=== PATIENT | female | born 2000 | race Caucasian/White ===

== ENCOUNTER 2022-10-06 18:21 | Emergency (ER) | payer OTHER ==
--- OUTSIDE RECORDS SUMMARY | 2022-10-06 18:25 | XMS REPORT | Continuity of Care Document ---
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 Completed University of 00:00:00 [facility] Pneumococcal 7 2002-04-26 Completed University of Conjugate, PCV7 00:00:00 [place] [facility] (Prevnar7) [facility] DTAP 2002-04-26 Completed University of 00:00:00 [facility] IPV 2002-04-26 Completed University of 00:00:00 [facility] Pneumococcal 7 2002-04-26 Completed University of Conjugate, PCV7 00:00:00 [place] [facility] (Prevnar7) [facility] DTAP 2002-04-26 Completed [facility] of 00:00:00 [facility] IPV 2002-04-26 Completed [facility] of 00:00:00 [facility] Pneumococcal 7 2002-04-26 Completed University of Conjugate, PCV7 00:00:00 [place] [facility] (Prevnar7) [facility] DTAP 2002-04-26 Completed University of 00:00:00 [facility] IPV 2002-04-26 Completed University of 00:00:00 [facility] Pneumococcal 7 2002-04-26 Completed University of Conjugate, PCV7 00:00:00 [place] [facility] (Prevnar7) [facility] DTAP 2002-04-26 Completed [facility] of 00:00:00 [facility] Pneumo (Prevnar 7) 2002-04-26 [facility]00 [facility]pol Injection 2002-04-26 [facility]pleted [facility] Injectable 00:00:00 Hib, Haemophilus 2002-04-26 [facility]pleted [facility] influenzae type b 00:00:00 vaccine, conjugate unspecified formulation DTaP, unspecified 2002-04-26 Completed [facility] formulation 00:00:00 DTAP 2002-01-30 Completed [facility] of 00:00:00 [facility] IPV 2002-01-30 Completed [facility] of 00:00:00 [facility] Pneumococcal 7 2002-01-30 Completed University of Conjugate, PCV7 00:00:00 [place] [facility] (Prevnar7) [facility] DTAP 2002-01-30 Completed [facility] of 00:00:00 [facility] IPV 2002-01-30 Completed [facility] of 00:00:00 [facility] Pneumococcal 7 2002-01-30 Completed University of Conjugate, PCV7 00:00:00 [place] [facility] (Prevnar7) [facility] DTAP 2002-01-30 Completed [facility] of 00:00:00 [facility] IPV 2002-01-30 Completed [facility] of 00:00:00 [facility] Pneumococcal 7 2002-01-30 Completed University of Conjugate, PCV7 00:00:00 [place] [facility] (Prevnar7) [facility] DTAP 2002-01-30 Completed [facility] of 00:00:00 [facility] IPV 2002-01-30 Completed [facility] of 00:00:00 [facility] Pneumococcal 7 2002-01-30 Completed [facility] Conjugate, PCV7 00:00:00 [place] [facility] (Prevnar7) [facility] DTAP 2002-01-30 Completed [facility] of 00:00:00 [facility] IPV 2002-01-30 Completed [facility] of 00:00:00 [facility] Pneumococcal 7 2002-01-30 Completed [facility] Conjugate, PCV7 00:00:00 [place] [facility] (Prevnar7) [facility] DTAP 2002-01-30 Completed [facility] of 00:00:00 [facility] DTAP 2002-01-30 Completed [facility] of 00:00:00 [facility] IPV 2002-01-30 Completed [facility] of 00:00:00 [facility] Pneumococcal 7 2002-01-30 Completed [facility] of Conjugate, PCV7 00:00:00 [place] [facility] (Prevnar7) [facility] IPV 2002-01-30 Completed [facility] 00:00:00 [facility] DTAP 2002-01-30 Completed [facility] of 00:00:00 [facility] IPV 2002-01-30 Completed [facility] 00:00:00 [facility] Pneumococcal 7 2002-01-30 Completed University of Conjugate, PCV7 00:00:00 [place] [facility] (Prevnar7) [facility] DTAP 2002-01-30 Completed [facility] 00:00:00 [facility] Pneumococcal 7 2002-01-30 Completed [facility] of Conjugate, PCV7 00:00:00 [place] [facility] (Prevnar7) [facility] IPV 2002-01-30 Completed [facility] 00:00:00 [facility] Pneumococcal 7 2002-01-30 Completed [facility] of Conjugate, PCV7 00:00:00 [place] [facility] (Prevnar7) [facility] DTAP 2002-01-30 Completed [facility] of 00:00:00 [facility] IPV 2002-01-30 Completed [facility] 00:00:00 [facility] Pneumococcal 7 2002-01-30 Completed [facility] Conjugate, PCV7 00:00:00 [place] [facility] (Prevnar7) [facility] DTAP 2002-01-30 Completed [facility] of 00:00:00 [facility] IPV 2002-01-30 Completed [facility] of 00:00:00 [facility] Pneumococcal 7 2002-01-30 Completed [facility] Conjugate, PCV7 00:00:00 [place] [facility] (Prevnar7) [facility] DTAP 2002-01-30 Completed [facility] of 00:00:00 [facility] IPV 2002-01-30 Completed [facility] of 00:00:00 [facility] Pneumococcal 7 2002-01-30 Completed [facility] of Conjugate, PCV7 00:00:00 [place] [facility] (Prevnar7) [facility] DTAP 2002-01-30 Completed [facility] of 00:00:00 [facility] IPV 2002-01-30 Completed [facility] of 00:00:00 [facility] Pneumococcal 7 2002-01-30 Completed [facility] Conjugate, PCV7 00:00:00 [place] [facility] (Prevnar7) [facility] Pneumo (Prevnar 7) 2002-01-30 [facility]pleted [facility] 00:[facility]:00 Ipol Injection 2002-01-30 Completed [facility] Injectable 00:00:00 Hib, Haemophilus 2002-01-30 Completed [facility] influenzae type b 00:00:00 vaccine, conjugate unspecified formulation DTaP, unspecified 2002-01-30 [facility]pleted [facility] formulation 00:00:00 Hepatitis B, 2002-01-15 Completed [facility] 00:00:00 dosage Hepatitis B, 2001 Completed [facility] 00:00:00 dosage Hepatitis B, 2001 Completed [facility] 00:00:00 dosage Vital Signs Vital Name Observation Time Observation Value Comments Source Systolic blood 2020-07-23 118 mm[Hg] University of pressure 19:00:00 [facility] Diastolic blood 2020-07-23 76 mm[Hg] University o f pressure 19:00:00 [facility] Heart rate 2020-07-23 94 /min University of 19:00:00 [facility] Body temperature 2020-07-23 36.72 [place] [facility] 19:00:00 [facility] Respiratory rate 2020-07-23 16 /min University of 19:00:00 [facility] Body weight 2020-07-23 82.555 kg University of 19:00:00 [facility] Systolic blood 2020-01-21 110 mm[Hg] University of pressure 21:10:00 [facility] Diastolic blood 2020-01-21 70 mm[Hg] University o f pressure 21:10:00 [facility] Heart rate 2020-01-21 75 /min University of 21:10:00 [facility] Respiratory rate 2020-01-21 16 /min University of 21:10:00 [facility] Body weight 2020-01-21 75.07 kg University of 21:10:00 [facility] Oxygen saturation 2020-01-21 98 /min [facility] in Arterial blood 21:10:00 [facility] Pulse oximetry [place] Systolic blood 2019-09-27 113 mm[Hg] University of pressure 21:06:00 [facility] Diastolic blood 2019-09-27 73 mm[Hg] University o f pressure 21:06:00 [facility] Heart rate 2019-09-27 79 /min University of 21:06:00 [facility] Body temperature 2019-09-27 36.17 [place] [facility] 21:06:00 [facility] Respiratory rate 2019-09-27 17 /min [facility] 21:06:00 [facility] Body height 2019-09-27 165.1 cm [facility] :06:00 [facility] Body weight 2019-09-27 72.576 kg [facility] 21:06:00 [facility] BMI 2019-09-27 26.63 kg/m2 [facility] 21:06:00 [facility] Oxygen saturation 2019-09-27 96 /min [facility] Arterial blood 21:06:00 [facility] by Pulse oximetry Branch BP Systolic 2018-10-11 118 mm[Hg] Location: LUE; [facility] 10:59:00 Position: Sitting BP Diastolic 2018-10-11 76 mm[Hg] Location: LUE; [facility] 10:59:00 Position: Sitting Height 2018-10-11 64 [in_us] [facility] 10:59:00 Weight 2018-10-11 144 [lb_av] [facility] 10:59:00 Body Mass Index 2018-10-11 24.72 kg/m2 [facility] Calculated 10:59:00 Temperature 2018-10-11 97.9 [degF] Method: Oral [facility] 10:59:00 Heart Rate 2018-10-11 91 /min Location: L [facility] 10:59:00 Brachial Artery; BP Systolic 2018-09-25 100 mm[Hg] Location: DELLAE; [facility] 10:51:00 Position: Sitting BP Diastolic 2018-09-25 68 mm[Hg] Location: MARY; [facility] 10:51:00 Position: Sitting Height 2018-09-25 64 [in_us] [facility] 10:51:00 Weight 2018-09-25 145 [lb_av] [facility] 10:51:00 Body Mass Index 2018-09-25 24.89 kg/m2 [facility] Calculated 10:51:00 Heart Rate 2018-09-25 101 /min [facility] 10:51:00 BP Systolic 2018-09-13 109 mm[Hg] Location: LUE; [facility] 13:10:00 Position: Sitting BP Diastolic 2018-09-13 67 mm[Hg] Location: DELLAE; [facility] 13:10:00 Position: Sitting Height 2018-09-13 64 [in_us] [facility] 13:10:00 Weight 2018-09-13 146 [lb_av] [facility] 13:10:00 Body Mass Index 2018-09-13 25.06 kg/m2 [facility] Calculated 13:10:00 Temperature 2018-09-13 98.2 [degF] Method: Oral [facility] 13:10:00 Heart Rate 2018-09-13 83 /min Location: L [facility] 13:10:00 Brachial Artery; Heart Rate 2018-07-18 [facility] 16:51:00 Temperature Oral 2018-07-18 98.2 F [facility] ([facility]) 16:51:00 Systolic (mm Hg) 2018-07-18 [facility] 16:51:00 Diastolic (mm Hg) 2018-07-18 [facility] 16:51:00 Respitory Rate 2018-07-18 [facility] 16:51:00 Height 2018-07-18 162.56 cm [facility] 15:01:00 Weight 2018-07-18 [facility] 15:01:00 BMI Calculated 2018-07-18 [facility] 15:01:00 Temperature Oral 2018-07-18 98.6 F [facility] (F) 15:01:00 Heart Rate 2018-07-18 [facility] 15:01:00 Systolic (mm Hg) 2018-07-18 [facility] 15:01:00 Diastolic (mm Hg) 2018-07-18 [facility] 15:01:00 Respitory Rate 2018-07-18 [facility] 15:01:00 Procedures Procedure Date / Time Performing Clinician Source Performed INSURANCE CORRESPONDENCE 2022-02-25 06:01:00 Doctor Unassigned, [facility] ASSIGNMENT OF BENEFITS 2020-07-23 18:50:10 Doctor Unassigned, [facility] POCT GRP A STREP 2020-01-21 21:29:00 [facility] (MOLECULAR) Medical Branch COVID-19 (PCR MOLECULAR 2019-09-27 20:59:[address] [facility] TESTING) Medical Branch VACCINATION OF A MINOR 2019-09-27 14:33:24 Doctor Unassigned, [facility] REFERRAL- 2019-04-26 06:01:00 Doctor Unassigned, [facility] REQUEST/RESPONSE [facility] Encounters Start End Encounter Admission Attending Care Care Encounter Source Date/Time Date/Time Type Type Clinicians Facility Department ID 2022-02-25 2022-02-25 Orders Doctor SEAN [id number] Univers 00:00:00 00:00:00 Only Unassigned, DERRICK [id number] [facility] [id number] Rc as [phone] [place] [address] Branch 2020-08-03 2020-08-03 Telephone de [facility] [id number] Univers 00:00:00 00:00:00 Jacobo Nelson [id number] ity of [facility] 4[facility]2.7.2.686 [facility] [phone] [address] 2020-07-23 2020-07-23 Office [facility] [id number] Univers 13:50:33 14:10:33 Visit Jacobo Nelson [id number] ity of [facility] 4.2.7.2.686 [facility] [id number] [address] 2020-07-23 2020-07-23 Outpatient R [facility] [id number] Univers 14:00:00 14:00:00 sue NELSON of [facility] 2020-07-23 2020-07-23 Orders Doctor ESTRADA [id number] Univers 00:00:00 00:00:00 Only Unassigned, DERRICK [id number] [facility] 4.2.7.2.686 Rc as [id number] [place] [address] Branch 2020-01-23 2020-01-23 Telephone de [facility] [id number] Univers 00:00:00 00:00:00 Jacobo Nelson [id number] ity of [facility] 4.2.7.2.686 [facility] [id number] [address] 2020-01-21 2020-01-21 Office [facility] [id number] Univers 16:00:01 16:20:01 Visit Jacobo Nelson [id number] ity of [facility] 4.2.7.2.686 [facility] [phone] [facility] [address] 2020-01-21 2020-01-21 Outpatient R [facility] [id number] Univers 16:00:00 16:00:00 sue NELSON [facility] 2019-10-10 2019-10-10 AppointSPARKLE Chan [id number] [place] 10:00:00 10:00:00 t; Divya PINEDA Ph minna Tuttle M.D. 2019-09-27 2019-09-27 Urgent Pob1, Acute Care Clinic [facility] [id number]. [id number] Univers 15:51:00 16:32:39 Care Jeannine Bowling [id number]. 10 ity of [place] 4.2.7.2.686 Rc as Professio [phone] [address] Office [address] [facility] 2019-09-27 2019-09-27 Outpatient R DASH [facility] [id number] Univers 09:40:00 09:40:[address] [facility] [place] [place] 2019-09-27 2019-09-27 Orders Doctor SEAN [id number] Univers 00:00:00 00:00:00 Only Unassigned, DERRICK [id number] [facility] 4.2.7.2.686 Rc as [phone] [address] 2019-09-27 2019-09-27 Telephone Dash [facility] [place] [id number] Univers 00:00:00 00:00:00 Jeannine Centeno [id number] ity of [facility] 4[facility]2.7.2.686 [facility] [phone] [facility] [address] 2019-09-26 2019-09-26 Telephone Etelvina [facility] [id number] Univers 00:00:00 00:00:00 , Deysi Centeno [id number] it y of [facility] 4.2.7.2.686 [facility] [id number] [facility] 225 Branch 2019-04-26 2019-04-26 Orders Doctor SEAN [id number] Univers 00:00:00 00:00:00 Only Unassigned, DERRICK [id number] ity of [facility] 4.2.7.2.686 Rc as [id number] [facility] 009 Branch 2018-10-11 2018-10-11 Appointpadmini TREVINO [facility] Obstetrics [id number] [place] 11:45:00 11:45:00 t; Divya PINEDA and Ph getachew TREVINO, Gynecology Mirtha Nava M.D. [facility] 2018-09-25 2018-09-25 [facility] [id number] [place] 10:15:00 10:15:00 t; Divya PINEDA [facility]ED[facility] M.[facility]. 2018-09-13 2018-09-13 Nuris TREVINO [facility] [id number] [place] 13:00:00 13:00:00 t; Divya PINEDA [facility] Ph minna Montalvo M.D. 2018-07-18 2018-07-18 Emergency [facility] [id number] [facility] 14:56:00 16:56:00 [facility] 00 l [facility] 2018-07-18 2018-07-18 Outpatient [place], [facility] [address] [id number] 09:56:00 11:56:00 Jesse Mc 00 2018-07-18 2018-07-18 Emergency E [facility] 7500 [facility]BL 09:56:00 09:56:00 Results Test Description Test Time Test Comments Results Result Comments Source POCT GRP A STREP (MOLECULAR) 2020-01-21 21:29:00 Test Item Value Reference Range Interpretation Comme nts POCT GP A STREP (test code = 47946-0) negative Negative - Negat wilma Lab Interpretation (test code = 75673-5) Normal [facility] GRP A STREP (MOLECULAR)2020-01-21 21:29:00 Test Item Value Reference Range Interpretation Comments POCT GP A STREP (test code = negative Negative - Negative 72379-8) Lab Interpretation (test code = Normal 09822-3) [facility]2019-09-29 17:27:00 Test Item Value Reference Range Interpretation Comments SARS-CoV-2 PCR (test Not Detected Not Detected code = 84414-8) GUILLAUME (test code = GUILLAUME) Sounday SARS-CoV-2 Assay is a nucleic acid amplification test intended for the qualitative detection of RNA from SARS-CoV-2 from nasopharyngeal (DEEP FAT COOK FRY) specimens. ?It is used under Emergency Use Authorization (EUA) by FDA. A positive result is indicative of the presence of SARS-CoV-2 RNA. ?Clinical correlation with patient history and other diagnostic information is necessary to determine patient infection status. A negative (Not Detected) result does not preclude SARS-CoV-2 infection. ?Clinical correlation with patient history and other diagnostic information should be used in patient management decisions. Invalid: Unable to generate a valid test result on this specimen. ?Please submit a new specimen for repeat testing if clinically indicated. Lab Interpretation Normal (test code = 24926-1) [facility][O] Urine Test (in office)2018-09-25 00:00:00 Test Item Value Reference Range Interpretation Comments Test, Urine; Normal (test neg N code = 2106-3) [facility] [id number] 15:29:00 Test Item Value Reference Range Interpretation Comments UA RBC (test code = 0-2 /HPF See_Comment [Automa dennis message] The UA RBC) system which ge nerated this result tra nsmitted reference range : <=2. The reference range was not used to interpr et this result as rafa l/abnormal. [facility] [id number] 15:29:00 Test Item Value Reference Range Interpretation Comments UA Sq Epi (test code = UA Sq Moderate /LPF Epi) [facility] [id number] 15:29:00 Test Item Value Reference Range Interpretation Comments UA WBC (test code = 3-5 /HPF See_Comment [Automa dennis message] The UA WBC) system which ge nerated this result tra nsmitted reference range : <=5. The reference range was not used to interpr et this result as rafa l/abnormal. [facility] AND [id number] 15:29:00 Test Item Value Reference Range Interpretation Comments UA Mucus (test code = UA Mucus) Few /LPF [facility] AND [id number] 15:29:00 Test Item Value Reference Range Interpretation Comments UA Protein (test code Negative (07/18/18 10:29 = UA Protein) AM) [facility] AND [id number] 15:29:00 Test Item Value Reference Range Interpretation Comments UA pH (test code = UA pH) 7.0 1 5.0-8.0 [facility] AND [id number] 15:29:00 Test Item Value Reference Range Interpretation Comments UA Spec Grav (test code = UA Spec 1.020 1 Grav) [facility] AND [id number] 15:29:00 Test Item Value Reference Range Interpretation Comments UA Turbidity (test code Slight Cloudy (07/18/18 = UA Turbidity) 10:29 AM) [facility] AND [id number] 15:29:00 Test Item Value Reference Range Interpretation Comments UA Color (test code = Yellow *NA*(07/18/18 UA Color) 10:29 AM) [facility] AND [id number] 15:29:00 Test Item Value Reference Range Interpretation Comments UA Nitrite (test code Negative (07/18/18 10:29 = UA Nitrite) AM) [facility] AND [id number] 15:29:00 Test Item Value Reference Range Interpretation Comments UA Leuk Est (test code Trace *ABN*(07/18/18 = UA Leuk Est) 10:29 AM) [facility] AND [id number] 15:29:00 Test Item Value Reference Range Interpretation Comments Micro? (test code = Performed (07/18/18 10:29 Micro?) AM) [facility] AND [id number] 15:29:00 Test Item Value Reference Range Interpretation Comments UA Blood (test code = Negative (07/18/18 10:29 UA Blood) AM) [facility] AND [id number] 15:29:00 Test Item Value Reference Range Interpretation Comments UA Urobilinogen (test code = UA 0.2 0.1-1.0 Urobilinogen) [facility] AND [id number] 15:29:00 Test Item Value Reference Range Interpretation Comments UA Ketones (test code = Trace *ABN*(07/18/18 UA Ketones) 10:29 AM) [facility] [id number] 15:29:00 Test Item Value Reference Range Interpretation Comments UA Bili (test code = Negative *NA*(07/18/18 UA Bili) 10:29 AM) [facility] AND [id number] 15:29:00 Test Item Value Reference Range Interpretation Comments UA Glucose (test code Negative (07/18/18 10:29 = UA Glucose) AM) [facility] [id number] 15:29:00 Test Item Value Reference Range Interpretation Comments U Preg (test code = U Negative (07/18/18 10:29 Preg) AM) [facility] [id number] 15:29:00 Test Item Value Reference Range Interpretation Comments N gonorrhea by Amp Det Negative *NA*(07/18/18 (APTIMA) (test code = N 10:29 AM) gonorrhea by Amp Det (APTIMA)) [facility] [id number] 15:29:00 Test Item Value Reference Range Interpretation Comments C trachomatis by Amp Det Negative *NA*(07/18/18 (APTIMA) (test code = C 10:29 AM) trachomatis by Amp Det (APTIMA)) [facility] [id number] 15:29:00 Test Item Value Reference Range Interpretation Comments Source APTIMA (test Urine *NA*(07/18/18 code = Source APTIMA) 10:29 AM) [facility] AND [id number] 15:29:00 Test Item Value Reference Range Interpretation Comments UA Bacteria (test code = UA Moderate /HPF Bacteria) [facility]
[2022-10-06] MEDS ORDERED: DOXYCYCLINE 100 MG CAP PO ONE (18:44)
[2022-10-06] MEDS ORDERED: LIDOCAINE 1% MPF 30 ML VIAL ONE (18:44)
--- NOTE | 2022-10-06 19:03 | ER ---
Nurse's Notes [facility] Name: Britney Brenner Age: 21 yrs Sex: Female : 2000 Arrival Date: 10/06/2022 Time: 18:21 Bed 11 Private MD: Diagnosis: Cutaneous abscess of the left cheek Presentation: 10/06 18:27 Chief complaint: Patient states: That she has a boil to her left cheek onet 4 days ago. cm10 Patient states using warm compresses but now it is getting worse. patient had fever at home TMAX 99.6f. Coronavirus screen: Vaccine status: Patient reports receiving the 2nd dose of the covid vaccine. At this time, the client does not indicate any symptoms associated with coronavirus-19. Ebola Screen: No symptoms or risks identified at this time. Initial Sepsis Screen: Does the patient meet any 2 criteria? No. Patient's initial sepsis screen is negative. Does the patient have a suspected source of infection? Yes: Skin breakdown/wound. Risk Assessment: Do you want to hurt yourself or someone else? Patient reports no desire to harm self or others. Onset of symptoms was October 02, 2022. 18:27 Method Of Arrival: Ambulatory cm10 18:27 Acuity: XAVIER 4 cm10 Triage Assessment: 18:30 General: Appears in no apparent distress. comfortable, Behavior is calm, cooperative. cm10 Neuro: No deficits noted. Level of Consciousness is awake, alert, Oriented to person, place, time, situation. Respiratory: No deficits noted. Airway is patent Respiratory effort is even, unlabored, Respiratory pattern is regular, symmetrical. 19:28 Pain: Complains of pain in left cheek. kd3 Historical: - Allergies: 18:29 No Known Allergies; cm10 - PMHx: 18:29 ADD/ADHD; Depression; cm10 - PSHx: 18:29 None; cm10 - Immunization history:: Adult Immunizations unknown. - Social history:: Smoking status: Patient denies any tobacco usage or history of. Screenin:33 [facility] ED Fall Risk Assessment (Adult) Score/Fall Risk Level 0 - 2 = Low Risk ll1 Oriented to surroundings, Maintained a safe environment, Educated pt \T\ family on fall prevention, incl call for assistance when getting out of bed, Hourly rounding (assess needs \T\ fall precautionary measures) done. Abuse screen: Denies threats or abuse. Nutritional screening: No deficits noted. Tuberculosis screening: No symptoms or risk factors identified. Assessment: 18:41 Reassessment: No changes from previously documented assessment. Patient and/or family ll1 updated on plan of care and expected duration. Pain level reassessed. Patient is alert, oriented x 3, equal unlabored respirations, skin warm/dry/pink. Vital Signs: 18:27 BP 131 / 86; Pulse 77; Resp 16; Temp 99.4; Pulse Ox 100% on R/A; Weight 83.46 kg; cm10 Height 5 ft. 5 in. ; Pain 0/10; 18:27 Body Mass Index 30.62 (83.46 kg, 165.1 cm) cm10 18:27 Pain Scale: Adult cm10 ED Course: 18:22 Patient arrived in ED. rg4 18:24 Vic Grissom PA is PHCP. [facility] 18:24 Timothy Johnson MD is Attending Physician. [facility] 18:29 Triage completed. cm10 18:30 Arm band placed on. cm10 18:32 Gardenia Luna, RN is Primary Nurse. ll1 18:33 Patient placed in an exam room, on a stretcher. ll1 18:33 Patient has correct armband on for positive identification. Bed in low position. Call ll1 light in reach. Cardiac monitoring not applicable on this patient. 19:26 Primary Nurse role handed off by Gardenia Luna, RN rv1 19:28 Neda Lira, OSEAS is Primary Nurse. kd3 19:28 No provider procedures requiring assistance completed. Patient did not have IV access kd3 during this emergency room visit. Administered Medications: 18:41 Drug: Lidocaine Infiltration (1 %) 20 ml {Note: by UNIQUE Drew.} Volume: 20 ml; ll1 Route: Infiltration; 19:29 Follow up: Response: No adverse reaction kd3 18:41 Drug: Doxycycline PO 100 mg Route: PO; ll1 19:29 Follow up: Response: No adverse reaction kd3 Medication: 18:33 VIS not applicable for this client. ll1 Outcome: 19:03 Discharge ordered by . [facility] 19:28 Discharged to home ambulatory. kd3 19:28 Condition: stable 19:28 Discharge instructions given to patient, family, Instructed on discharge instructions, follow up and referral plans. Demonstrated understanding of instructions, follow-up care, medications, Prescriptions given X 1. 19:29 Patient left the ED. kd3 Signatures: Vic Grissom PA PA jmm Garcia, Rubi rg4 Gardenia Luna RN RN ll1 Neda Lira RN RN kd3 Tracey Anderson rv1 Gissell Fountain RN RN cm10
--- NOTE | 2022-10-06 19:04 | EDPHYS ---
Physician Documentation [facility] Name: Britney Brenner Age: 21 yrs Sex: Female : 2000 Arrival Date: 10/06/2022 Time: 18:21 Bed 11 Private MD: ED Physician Timothy Johnson HPI: 10/06 18:44 This 21 yrs old Female presents to ER via Ambulatory with complaints of Abscess. jmm 18:44 the patient presents with a swollen area of the left cheek. Onset: The symptoms/episode jmm began/occurred gradually. Possible cause(s): unknown. Associated signs and symptoms: Pertinent positives: swelling. Modifying factors: the symptoms are alleviated by nothing, the symptoms are aggravated by nothing. It is unknown whether or not the patient has had similar symptoms in the past. Historical: - Allergies: 18:29 No Known Allergies; cm10 - PMHx: 18:29 ADD/ADHD; Depression; cm10 - PSHx: 18:29 None; cm10 - Immunization history:: Adult Immunizations unknown. - Social history:: Smoking status: Patient denies any tobacco usage or history of. ROS: 18:44 Constitutional: Negative for fever, chills, and weight loss, Cardiovascular: Negative jmm for chest pain, palpitations, and edema, Respiratory: Negative for shortness of breath, cough, wheezing, and pleuritic chest pain. 18:44 Skin: Positive for abscess. 18:44 All other systems are negative. Exam: 18:44 Constitutional: This is a well developed, well nourished patient who is awake, alert, jmm and in no acute distress. 18:44 Eyes: EOMI, no conjunctival erythema appreciated ENT: Moist Mucus Membranes Neck: Trachea midline, Supple Chest/axilla: Normal chest wall appearance and motion. Cardiovascular: Regular rate and rhythm. No edema appreciated Respiratory: Normal respirations, no respiratory distress appreciated Abdomen/GI: Non distended Back: Normal ROM 18:44 Head/face: small abscess noted to the left cheek. 18:44 Skin: small abscess noted to the left cheek. 18:44 Neuro: Orientation: is normal, Mentation: is normal, Memory: is normal. 18:44 Psych: Behavior/mood is pleasant, cooperative. Vital Signs: 18:27 BP 131 / 86; Pulse 77; Resp 16; Temp 99.4; Pulse Ox 100% on R/A; Weight 83.46 kg; cm10 Height 5 ft. 5 in. ; Pain 0/10; 18:27 Body Mass Index 30.62 (83.46 kg, 165.1 cm) cm10 18:27 Pain Scale: Adult cm10 Procedures: 19:00 I \T\ D: Incision and drainage was performed for an abscess of the left cheek Prepped jmm with Betadine, Anesthetized with 1 ml's 1% Lidocaine. Incised with 18 gauge. Drained small amount purulent fluid. Dressing: sterile 4x4 gauze, the patient tolerated the procedure well. MDM: 18:31 Patient medically screened. [facility] 19:01 Data reviewed: vital signs, nurses notes. I considered the following discharge [facility] prescriptions or medication management in the emergency department Medications were administered in the Emergency Department. See MAR. Counseling: I had a detailed discussion with the patient and/or guardian regarding: the historical points, exam findings, and any diagnostic results supporting the discharge/admit diagnosis, the need for outpatient follow up, to return to the emergency department if symptoms worsen or persist or if there are any questions or concerns that arise at home. ED course: Patient is alert and non toxic in appearance in the ED. Advised to follow up with pcp and otherwise given strict return precautions. Patient understood and agrees with the plan of care. . Administered Medications: 18:41 Drug: Lidocaine Infiltration (1 %) 20 ml {Note: by PA. Rajendra} Volume: 20 ml; ll1 Route: Infiltration; 19:29 Follow up: Response: No adverse reaction kd3 18:41 Drug: Doxycycline PO 100 mg Route: PO; ll1 19:29 Follow up: Response: No adverse reaction kd3 Disposition: 10/07 10:00 Co-signature as Attending Physician, Timothy Johnson MD I reviewed the patient's care rt provided by the Advanced Practice Provider and agree with the diagnosis and treatment plan. Disposition Summary: 10/06/22 19:03 Discharge Ordered Location: Home [facility] Condition: Stable [facility] Diagnosis - Cutaneous abscess of the left cheek [facility] Followup: jmm - With: Private Physician - When: 2 - 3 days - Reason: Recheck today's complaints, Continuance of care, Re-evaluation by your physician Discharge Instructions: - Discharge Summary Sheet jmm - Skin Abscess jmm Forms: - Medication Reconciliation Form jmm - Thank You Letter jmm - Antibiotic Education jmm - Prescription Opioid Use jmm - Work release form kd3 Prescriptions: - Doxycycline Hyclate 100 mg Oral Tablet - take 1 tablet by ORAL route every 12 hours; 20 tablet; Refills: 0, Product jmpadmini Selection Permitted Signatures: Vic Grissom PA PA jmm Lewis, Lynsay, RN RN ll1 Timothy Johnson MD MD rt Gissell Fountain RN RN cm10 Neda Lira RN kd3
[2022-10-06 19:35] VITALS: BP 131/86; TEMP 99.4; O2SAT 100
== END 2022-10-06 19:29 | disposition home or self-care (01) ==
LOC: ER 18:21
PROC: 0H91XZZ Drainage of Face Skin, External Approach (ICD-10-PCS; principal; 2022-10-06)
DX: L02.01 Cutaneous abscess of face (principal)
CPT/HCPCS: 99283; 10060; J2001

== ENCOUNTER 2022-11-24 21:25 | Emergency (ER) | payer OTHER ==
--- OUTSIDE RECORDS SUMMARY | 2022-11-24 21:32 | XMS REPORT | Continuity of Care Document ---
:2000 Author Organization [facility] t Address [address] [place] [address] [place] [id number] Care Team Providers Name Role Phone Jessica Medrano Primary Care Physician [phone] Doctor Unassigned, [place] Attending Clinician Unavailable Jessica Guzman Attending Clinician JESSICA HARRIS Attending Clinician Unavailable MIRIAM TREVINO M.D. Attending Clinician Unavailable [facility] Attending Clinician Unavailable Jeannine [...] 07-18 05:14:00 l 07/18/2018 00:00: Hiram grimaldo [facility] 00 [place] No known No known Disease Unive rs active active ity of problems problems [place] [facility] [place] History of History of Problem Resolve [facility] [...] Active Univers ALLERGIE Class ity of [facility] Social History Social Habit Start Date Stop Date Quantity Comments Source History of Passive smoker University of tobacco use [facility] Exposure to Not sure [facility] SARS-CoV-2 [facility] (event) [place] Alcohol intake 2020-07-23 2020-07-23 Current University of 00:00:00 00:00:00 non-drinker of [facility] alcohol (finding) [place] Tobacco use and 2017-02-22 2017-02-22 Smokeless tobacco Un iversity of exposure 00:00:00 00:00:00 non-user [facility] Tobacco Comment 2016-12-28 2016-12-28 [facility] smokes Universit y of 00:00:00 00:00:00 outside the home [facility] dical [place] Sex Assigned At [birth year] Universit y of 00:00:00 00:00:00 [facility] Smoking Status Start Date Stop Date Source Social History [facility] Medications Ordered Filled Start Stop Current Ordering Indication Dosage Frequency Signature Comments Components Source Medication Medication Date Date Medication? Clinician (SIG) Name Name cetirizine 2020- No [id number] 10mg Take 1 Univers (ZYRTEC) 10 07-23 tablet by it y of mg tablet 00:00: 04:59 mouth [place] 00 :00 daily for Medical 30 days. [place] fluticasone 2020- No [id number] 1{spray Use 1 Univers propionate 07-23 } [place] in ity of 50 00:00: 04:59 each [place] mcg/actuati 00 :00 nostril Medic al on nasal daily for Branch spray 30 days. cetirizine 2020- No [id number] 10mg Take 1 Univers (ZYRTEC) 10 07-23 tablet by it y of mg tablet 00:00: 04:59 mouth [place] 00 :00 daily for Medical 30 days. Branch fluticasone 2020- No [id number] 1{spray Use 1 Univers propionate 07-23 } [place] in ity of 50 00:00: 04:59 each [place] mcg/actuati 00 :00 nostril Medic al on nasal daily for Branch spray 30 days. cetirizine 2020- No [id number] 10mg Take 1 Univers (ZYRTEC) 10 07-23 tablet by it y of mg tablet 00:00: 04:59 mouth [place] 00 :00 daily for Medical 30 days. Branch fluticasone 2020- No [id number] 1{spray Use 1 Univers propionate 07-23 } [place] in ity of 50 00:00: 04:59 each [place] mcg/actuati 00 :00 nostril Medic al on nasal daily for Branch spray 30 days. amoxicillin 2020-0 Yes [id number] 1{tbl} Take 1 Univers -clavulanat 6-12 tablet by ity of e 00:00: mouth 2 [place] (AUGMENTIN) 00 (two) Medical 875-125 mg times Branch per tablet daily. amoxicillin 2020-0 Yes [id number] 1{tbl} Take 1 Univers -clavulanat 6-12 tablet by ity of e 00:00: mouth 2 [place] (AUGMENTIN) 00 (two) Medical 875-125 mg times Branch per tablet daily. amoxicillin 2020-0 Yes [id number] 1{tbl} Take 1 Univers -clavulanat 6-12 tablet by ity of e 00:00: mouth 2 [place] (AUGMENTIN) 00 (two) Medical 875-125 mg times Branch per tablet daily. amoxicillin 2020-0 Yes [id number] 1{tbl} Take 1 Univers -clavulanat 6-12 tablet by ity of e 00:00: mouth 2 [place] (AUGMENTIN) 00 (two) Medical 875-125 mg times Branch per tablet daily. amoxicillin 2020-0 Yes [id number] 1{tbl} Take 1 Univers -clavulanat 6-12 tablet by ity of e 00:00: mouth 2 [place] (AUGMENTIN) 00 (two) Medical 875-125 mg times Branch per tablet daily. amoxicillin 2020- No [id number] 1{tbl} Take 1 Univers -clavulanat 6-12 04-08 tablet by it y of e 00:00: 00:00 mouth 2 [place] (AUGMENTIN) 00 :00 (two) Medical 875-125 mg times Branch per tablet daily. amoxicillin 2020- No [id number] 1{tbl} Take 1 Univers -clavulanat 6-12 04-08 tablet by it y of e 00:00: 00:00 mouth 2 [place] (AUGMENTIN) 00 :00 (two) Medical 875-125 mg times Branch per tablet daily. amoxicillin 2019- No [id number] 1{tbl} Take 1 Univers -clavulanat 6-12 06-12 tablet by it y of e 00:00: 00:00 mouth 2 [place] (AUGMENTIN) 00 :00 (two) Medical 875-125 mg [...] tablet 00 every Medical morning. Branch buPROPion 2017-0 Yes 150mg Take 1 Unive rs XL 150 mg 3-10 tablet by ity o f 24 hr 00:00: mouth [place] tablet 00 every Medical morning. Branch escitalopra Yes [id number] 5mg Take 1 Univers m oxalate 5 [...] every Medical morning. Branch escitalopra 2017-0 Yes [id number] 5mg Take 1 Univers m oxalate 5 3-10 tablet by ity of mg tablet 00:00: mouth [place] 00 daily. Medical Branch escitalopra 2018-0 Yes [id number] 5mg Take 1 Univers m oxalate 5 3-10 tablet by ity of mg tablet 00:00: mouth [place] 00 daily. Medical Branch buPROPion 2017-0 Yes 150mg Take 1 Unive rs XL 150 mg 3-10 tablet by ity o f 24 hr 00:00: mouth [place] tablet 00 every Medical morning. Branch escitalopra 2018-0 Yes [id number] 5mg Take 1 Univers m oxalate 5 3-10 tablet by ity of mg tablet 00:00: mouth [place] 00 daily. [facility] Branch buPROPion 2017-0 Yes 150mg Take 1 Unive rs XL 150 mg 3-10 tablet by ity o f 24 hr 00:00: mouth [place] tablet 00 every Medical morning. Branch escitalopra 2017-0 Yes [id number] 5mg Take 1 Univers m oxalate 5 3-10 tablet by ity of mg tablet 00:00: mouth [place] 00 daily. [facility] Branch buPROPion 2017-0 Yes 150mg Take 1 Unive rs XL 150 mg 3-10 tablet by ity o f 24 hr 00:00: mouth [place] tablet 00 every Medical morning. Branch escitalopra 2017-0 Yes [id number] 5mg Take 1 Univers m oxalate 5 3-10 tablet by ity of mg tablet 00:00: mouth [place] 00 daily. [facility] Branch buPROPion 2017-0 Yes 150mg Take 1 Unive rs XL 150 mg 3-10 tablet by ity o f 24 hr 00:00: mouth [place] tablet 00 every Medical morning. Branch escitalopra 2017-0 Yes [id number] 5mg Take 1 Univers m oxalate 5 3-10 tablet by ity of mg tablet 00:00: mouth [place] 00 daily. [facility] Branch buPROPion 2017-0 Yes 150mg Take 1 Unive rs XL 150 mg 3-10 tablet by ity o f 24 hr 00:00: mouth [place] tablet 00 every Medical morning. Branch escitalopra 2017-0 Yes [id number] 5mg Take 1 Univers m oxalate 5 3-10 tablet by ity of mg tablet 00:00: mouth [place] 00 daily. [facility] Branch buPROPion 2018-0 Yes 150mg Take 1 Unive rs XL 150 mg 3-10 tablet by ity o f 24 hr 00:00: mouth [place] tablet 00 every Medical morning. Branch escitalopra 2017-0 Yes [id number] 5mg Take 1 Univers m oxalate 5 3-10 tablet by ity of mg tablet 00:00: mouth [place] 00 daily. [facility] Branch buPROPion 2017-0 Yes 150mg Take 1 Unive rs XL 150 mg 3-10 tablet by ity o f 24 hr 00:00: mouth [place] tablet 00 every Medical morning. Branch escitalopra 2018-0 Yes [id number] 5mg Take 1 Univers m oxalate 5 3-10 tablet by ity of mg tablet 00:00: mouth [place] 00 daily. Medical Branch buPROPion 2018-0 Yes 150mg Take 1 Unive rs XL 150 mg 3-10 tablet by ity o f 24 hr 00:00: mouth [place] tablet 00 every Medical morning. Branch escitalopra 2018-0 Yes [id number] 5mg Take 1 Univers m oxalate 5 3-10 tablet by ity of mg tablet 00:00: mouth [place] 00 daily. Medical Branch buPROPion 2017-0 Yes 150mg Take 1 Unive rs XL 150 mg 3-10 tablet by ity o f 24 hr 00:00: mouth [place] tablet 00 every Medical morning. Branch escitalopra 2017-0 Yes [id number] 5mg Take 1 Univers m oxalate 5 3-10 tablet by ity of mg tablet 00:00: mouth [place] 00 daily. Medical Branch buPROPion 2017-0 Yes 150mg Take 1 Unive rs XL 150 mg 3-10 tablet by ity o f 24 hr 00:00: mouth [place] tablet 00 every Medical morning. Branch escitalopra 0 Yes [id number] 5mg Take 1 Univers m oxalate 5 3-10 tablet by ity of mg tablet 00:00: mouth [place] 00 daily. [facility] Branch Wellbutrin Wellbutrin Yes M.D. [place] TABS TABS [facility] Lexapro Lexapro Yes M.D. [place] [facility] Methylpheni Methylpheni Yes M.D. U T date HCl date HCl Physici TABS TABS ans Immunizations Ordered Immunization Filled Immunization Date Status Commen ts Source Name Name Meningococcal 2018-01-08 Completed University Polysaccharide 00:00:00 [facility] (groups A, C, Y and Branc h W-135) conjugate vaccine (MCV4P) Meningococcal B, OMV 2018-01-08 Completed Univ ersity of 00:00:00 [facility] HPV9 2018-01-08 Completed University of 00:00:00 [facility] Meningococcal 2018-01-08 Completed [facility] Polysaccharide 00:00:00 [facility] (groups A, C, Y and Branc h W-135) conjugate vaccine (MCV4P) Meningococcal B, OMV 2018-01-08 Completed Univ ersity of 00:00:00 [facility] HPV9 2018-01-08 Completed University of 00:00:00 [facility] Meningococcal 2018-01-08 Completed University of Polysaccharide 00:00:00 [place] [facility] [place] (groups A, C, Y and Branc h W-135) conjugate vaccine (MCV4P) Meningococcal B, OMV 2018-01-08 Completed Univ ersity of 00:00:00 [facility] Branch HPV9 2018-01-08 Completed University of 00:00:00 [facility] Meningococcal 2018-01-08 Completed University of Polysaccharide 00:00:00 [place] [facility] [place] (groups A, C, Y and Branc h W-135) conjugate vaccine (MCV4P) Meningococcal B, OMV 2018-01-08 Completed Univ ersity of 00:00:00 [facility] Branch HPV9 2018-01-08 Completed University of 00:00:00 [facility] Meningococcal 2018-01-08 Completed University of Polysaccharide 00:00:00 [place] [facility] [place] (groups A, C, Y and Branc h W-135) conjugate vaccine (MCV4P) Meningococcal B, OMV 2018-01-08 Completed Univ ersity of 00:00:00 [facility] HPV9 2018-01-08 Completed University of 00:00:00 [facility] Meningococcal 2018-01-08 Completed University of Polysaccharide 00:00:00 [place] [facility] [place] (groups A, C, Y and Branc h W-135) conjugate vaccine (MCV4P) Meningococcal B, OMV 2018-01-08 Completed Univ ersity of 00:00:00 [facility] HPV9 2018-01-08 Completed University of 00:00:00 [facility] Meningococcal 2018-01-08 Completed University of Polysaccharide 00:00:00 [place] [facility] [place] (groups A, C, Y and Branc h W-135) conjugate vaccine (MCV4P) Meningococcal B, OMV 2018-01-08 Completed Univ ersity of 00:00:00 [facility] HPV9 2018-01-08 Completed University of 00:00:00 [facility] Meningococcal 2018-01-08 Completed University of Polysaccharide 00:00:00 [place] [facility] [place] (groups A, C, Y and Branc h W-135) conjugate vaccine (MCV4P) Meningococcal B, OMV 2018-01-08 Completed Univ ersity of 00:00:00 [facility] HPV9 2018-01-08 Completed University of 00:00:00 [facility] Meningococcal 2018-01-08 Completed University of Polysaccharide 00:00:00 [place] [facility] [place] (groups A, C, Y and Branc h W-135) conjugate vaccine (MCV4P) Meningococcal B, OMV 2018-01-08 Completed Univ ersity of 00:00:00 [facility] Branch HPV9 2018-01-08 Completed University of 00:00:00 [facility] Meningococcal 2018-01-08 Completed University of Polysaccharide 00:00:00 [place] [facility] [place] (groups A, C, Y and Branc h W-135) conjugate vaccine (MCV4P) Meningococcal B, OMV 2018-01-08 Completed Univ ersity of 00:00:00 [facility] HPV9 2018-01-08 Completed University of 00:00:00 [facility] Meningococcal 2018-01-08 Completed University of Polysaccharide 00:00:00 [place] [facility] [place] (groups A, C, Y and Branc h W-135) conjugate vaccine (MCV4P) Meningococcal B, OMV 2018-01-08 Completed Univ ersity of 00:00:00 [facility] HPV9 2018-01-08 Completed University of 00:00:00 [facility] Meningococcal 2018-01-08 Completed University of Polysaccharide 00:00:00 [place] [facility] [place] (groups A, C, Y and Branc h W-135) conjugate vaccine (MCV4P) Meningococcal B, OMV 2018-01-08 Completed Univ ersity of 00:00:00 [facility] HPV9 2018-01-08 Completed University of 00:00:00 [facility] Meningococcal 2018-01-08 Completed University of Polysaccharide 00:00:00 [place] [facility] [place] (groups A, C, Y and Branc h W-135) conjugate vaccine (MCV4P) Meningococcal B, OMV 2018-01-08 Completed Univ ersity of 00:00:00 [facility]9 2018-01-08 Completed University of 00:00:00 [facility] Boostrix 5-2.5-18.5 2013-08-16 Completed [facility] [...] 00:00:00 IPV 2002-06-26 Completed University of 00:00:00 [facility] Pneumococcal 7 2002-06-26 Completed University of Conjugate, PCV7 00:00:00 [facility] ical (Prevnar7) Branch DTAP 2002-06-26 Completed University of 00:00:00 [facility] IPV 2002-06-26 Completed University of 00:00:00 [facility] Pneumococcal 7 2002-06-26 Completed University of Conjugate, PCV7 00:00:00 [place] [facility] ical (Prevnar7) Branch DTAP 2002-06-26 Completed University of 00:00:00 [facility] Branch IPV 2002-06-26 Completed University of 00:00:00 [facility] Branch Pneumococcal 7 2002-06-26 Completed University of Conjugate, PCV7 00:00:00 [place] [facility] ical (Prevnar7) Branch DTAP 2002-06-26 Completed University of 00:00:00 [facility] Branch IPV 2002-06-26 Completed University of 00:00:00 [facility] Branch Pneumococcal 7 2002-06-26 Completed University of Conjugate, PCV7 00:00:00 [place] [facility] ical (Prevnar7) Branch DTAP 2002-06-26 Completed University of 00:00:00 [facility] Branch DTAP 2002-06-26 Completed University of 00:00:00 [facility] IPV 2002-06-26 Completed University of 00:00:00 [facility] Branch Pneumococcal 7 2002-06-26 Completed University of Conjugate, PCV7 00:00:00 [place] [facility] (Prevnar7) Branch DTAP 2002-06-26 Completed University of 00:00:00 [facility] IPV 2002-06-26 Completed University of 00:00:00 [facility] IPV 2002-06-26 Completed University of 00:00:00 [facility] Branch Pneumococcal 7 2002-06-26 Completed University of Conjugate, PCV7 00:00:00 [place] [facility] ical (Prevnar7) Branch DTAP 2002-06-26 Completed University of 00:00:00 [facility] IPV 2002-06-26 Completed University of 00:00:00 [facility] Branch Pneumococcal 7 2002-06-26 Completed University of Conjugate, PCV7 00:00:00 [place] [facility] ical (Prevnar7) Branch Pneumococcal 7 2002-06-26 Completed University of Conjugate, PCV7 00:00:00 [place] [facility] ical (Prevnar7) Branch DTAP 2002-06-26 Completed University of 00:00:00 [facility] Branch IPV 2002-06-26 Completed University of 00:00:00 [facility] Branch Pneumococcal 7 2002-06-26 Completed University of Conjugate, PCV7 00:00:00 [place] [facility] ical (Prevnar7) Branch DTAP 2002-06-26 Completed University of 00:00:00 [facility] Branch IPV 2002-06-26 Completed University of 00:00:00 [facility] Pneumococcal 7 2002-06-26 Completed University of Conjugate, PCV7 00:00:00 [place] [facility] ical (Prevnar7) Branch DTAP 2002-06-26 Completed University of 00:00:00 [facility] IPV 2002-06-26 Completed University of 00:00:00 [facility] Pneumococcal 7 2002-06-26 Completed University of Conjugate, PCV7 00:00:00 [place] [facility] ical (Prevnar7) Branch DTAP 2002-06-26 Completed University of 00:00:00 [facility] IPV 2002-06-26 Completed University of 00:00:00 [facility] Pneumococcal 7 2002-06-26 Completed University of Conjugate, PCV7 00:00:00 [place] [facility] ical (Prevnar7) Branch DTAP 2002-06-26 Completed University of 00:00:00 [facility] IPV 2002-06-26 Completed University of 00:00:00 [facility] Pneumococcal 7 2002-06-26 Completed University of Conjugate, PCV7 00:00:00 [place] [facility] ical (Prevnar7) Branch DTAP 2002-06-26 Completed University of 00:00:00 [facility] Pneumo (Prevnar 7) 2002-04-[facility] Ipol Injection 2002-04-26 [facility]pleted [facility] Injectable 00:00:00 Hib, Haemophilus 2002-04-26 [facility]pleted [facility] influenzae type b 00:00:00 vaccine, conjugate unspecified formulation DTaP, unspecified 2002-04-26 Completed [facility] formulation 00:00:00 IPV 2002-04-26 Completed University of 00:00:00 [facility] Pneumococcal 7 2002-04-26 Completed University of Conjugate, PCV7 00:00:00 [place] [facility] (Prevnar7) Branch DTAP 2002-04-26 Completed University of 00:00:00 [facility] IPV 2002-04-26 Completed University of 00:00:00 [facility] Pneumococcal 7 2002-04-26 Completed University of Conjugate, PCV7 00:00:00 [place] [facility] (Prevnar7) Branch DTAP 2002-04-26 Completed University of 00:00:00 [facility] IPV 2002-04-26 Completed University of 00:00:00 [facility] Pneumococcal 7 2002-04-26 Completed University of Conjugate, PCV7 00:00:00 [place] [facility] ical (Prevnar7) Branch DTAP 2002-04-26 Completed University of 00:00:00 [facility] Branch IPV 2002-04-26 Completed University of 00:00:00 [facility] Branch Pneumococcal 7 2002-04-26 Completed University of Conjugate, PCV7 00:00:00 [place] [facility] ical (Prevnar7) Branch DTAP 2002-04-26 Completed University of 00:00:00 [facility] Branch DTAP 2002-04-26 Completed University of 00:00:00 [facility] Branch IPV 2002-04-26 Completed University of 00:00:00 [facility] Branch Pneumococcal 7 2002-04-26 Completed University of Conjugate, PCV7 00:00:00 [place] [facility] ical (Prevnar7) Branch DTAP 2002-04-26 Completed University of 00:00:00 [facility] Branch IPV 2002-04-26 Completed University of 00:00:00 [facility] Branch Pneumococcal 7 2002-04-26 Completed University of Conjugate, PCV7 00:00:00 [place] [facility] (Prevnar7) Branch IPV 2002-04-26 Completed University of 00:00:00 [facility] Branch DTAP 2002-04-26 Completed University of 00:00:00 [facility] Branch IPV 2002-04-26 Completed University of 00:00:00 [facility] Branch Pneumococcal 7 2002-04-26 Completed University of Conjugate, PCV7 00:00:00 [place] [facility] ical (Prevnar7) Branch Pneumococcal 7 2002-04-26 Completed University of Conjugate, PCV7 00:00:00 [place] [facility] (Prevnar7) Branch DTAP 2002-04-26 Completed University of 00:00:00 [facility] Branch IPV 2002-04-26 Completed University of 00:00:00 [facility] Branch Pneumococcal 7 2002-04-26 Completed University of Conjugate, PCV7 00:00:00 [place] [facility] ical (Prevnar7) Branch DTAP 2002-04-26 Completed University of 00:00:00 [facility] Branch IPV 2002-04-26 Completed University of 00:00:00 [facility] Branch Pneumococcal 7 2002-04-26 Completed University of Conjugate, PCV7 00:00:00 [place] [facility] ical (Prevnar7) Branch DTAP 2002-04-26 Completed University of 00:00:00 [facility] Branch IPV 2002-04-26 Completed University of 00:00:00 [facility] Branch Pneumococcal 7 2002-04-26 Completed University of Conjugate, PCV7 00:00:00 [place] [facility] (Prevnar7) Branch DTAP 2002-04-26 Completed University of 00:00:00 [facility] Branch IPV 2002-04-26 Completed University of 00:00:00 [facility] Pneumococcal 7 2002-04-26 Completed University of Conjugate, PCV7 00:00:00 [place] [facility] (Prevnar7) Branch DTAP 2002-04-26 Completed University of 00:00:00 [facility] Branch IPV 2002-04-26 Completed University of 00:00:00 [facility] Pneumococcal 7 2002-04-26 Completed University of Conjugate, PCV7 00:00:00 [place] [facility] (Prevnar7) Branch DTAP 2002-04-26 Completed University of 00:00:00 [facility] Pneumo (Prevnar 7) 2002-01-30 [facility]:00 Ipol Injection 2002-01-30 [facility]pleted [facility] Injectable 00:00:00 Hib, Haemophilus 2002-01-30 Completed [facility] influenzae type b 00:00:00 vaccine, conjugate unspecified formulation DTaP, unspecified 2002-01-30 Completed [facility] formulation 00:00:00 DTAP 2002-01-30 Completed University of 00:00:00 [facility] IPV 2002-01-30 Completed University of 00:00:00 [facility] Pneumococcal 7 2002-01-30 Completed University of Conjugate, PCV7 00:00:00 [place] [facility] (Prevnar7) Branch DTAP 2002-01-30 Completed University of 00:00:00 [facility] IPV 2002-01-30 Completed University of 00:00:00 [facility] Pneumococcal 7 2002-01-30 Completed University of Conjugate, PCV7 00:00:00 [place] [facility] (Prevnar7) Branch DTAP 2002-01-30 Completed University of 00:00:00 [facility] IPV 2002-01-30 Completed University of 00:00:00 [facility] Pneumococcal 7 2002-01-30 Completed University of Conjugate, PCV7 00:00:00 [place] [facility] (Prevnar7) Branch DTAP 2002-01-30 Completed University of 00:00:00 [facility] IPV 2002-01-30 Completed University of 00:00:00 [facility] Pneumococcal 7 2002-01-30 Completed University of Conjugate, PCV7 00:00:00 [place] [facility] (Prevnar7) Branch DTAP 2002-01-30 Completed University of 00:00:00 [facility] Branch IPV 2002-01-30 Completed University of 00:00:00 [facility] Branch Pneumococcal 7 2002-01-30 Completed University of Conjugate, PCV7 00:00:00 [place] [facility] ical (Prevnar7) Branch DTAP 2002-01-30 Completed University of 00:00:00 [facility] Branch DTAP 2002-01-30 Completed University of 00:00:00 [facility] Branch IPV 2002-01-30 Completed University of 00:00:00 [facility] Branch Pneumococcal 7 2002-01-30 Completed University of Conjugate, PCV7 00:00:00 [place] [facility] (Prevnar7) Branch IPV 2002-01-30 Completed University of 00:00:00 [facility] Branch DTAP 2002-01-30 Completed University of 00:00:00 [facility] IPV 2002-01-30 Completed University of 00:00:00 [facility] Branch Pneumococcal 7 2002-01-30 Completed University of Conjugate, PCV7 00:00:00 [place] [facility] (Prevnar7) Branch DTAP 2002-01-30 Completed University of 00:00:00 [facility] Branch Pneumococcal 7 2002-01-30 Completed University of Conjugate, PCV7 00:00:00 [place] [facility] (Prevnar7) Branch IPV 2002-01-30 Completed University of 00:00:00 [facility] Branch Pneumococcal 7 2002-01-30 Completed University of Conjugate, PCV7 00:00:00 [place] [facility] (Prevnar7) Branch DTAP 2002-01-30 Completed University of 00:00:00 [facility] Branch IPV 2002-01-30 Completed University of 00:00:00 [facility] Branch Pneumococcal 7 2002-01-30 Completed University of Conjugate, PCV7 00:00:00 [place] [facility] (Prevnar7) Branch DTAP 2002-01-30 Completed University of 00:00:00 [facility] Branch IPV 2002-01-30 Completed University of 00:00:00 [facility] Branch Pneumococcal 7 2002-01-30 Completed University of Conjugate, PCV7 00:00:00 [place] [facility] ical (Prevnar7) Branch DTAP 2002-01-30 Completed University of 00:00:00 [facility] Branch IPV 2002-01-30 Completed University of 00:00:00 [facility] Branch Pneumococcal 7 2002-01-30 Completed University of Conjugate, PCV7 00:00:00 [place] [facility] (Prevnar7) Branch DTAP 2002-01-30 Completed University of 00:00:00 [facility] IPV 2002-01-30 Completed University of 00:00:00 [facility] Pneumococcal 7 2002-01-30 Completed University of Conjugate, PCV7 00:00:00 [place] [facility] (Prevnar7) Branch Hepatitis B, 2002-01-15 [facility]:00 dosage Hepatitis B, 2001 [facility]pleted [facility]:00 dosage Hepatitis B, 2001 Completed [facility] 00:[facility]:00 dosage Vital Signs Vital Name Observation Time Observation Value Comments Source Systolic blood 2020-07-23 118 mm[Hg] University of pressure 19:00:00 [facility] Diastolic blood 2020-07-23 76 mm[Hg] University o f pressure 19:00:00 [facility] Heart rate 2020-07-23 94 /min [facility] 19:00:00 [facility] Body temperature 2020-07-23 36.72 [place] [facility] 19:00:00 [facility] Respiratory rate 2020-07-23 16 /min [facility] 19:00:00 [facility] Body weight 2020-07-23 82.555 kg [facility] 19:00:00 [facility] Systolic blood 2020-01-21 110 mm[Hg] [facility] of pressure 21:10:00 [facility] Diastolic blood 2020-01-21 70 mm[Hg] University o f pressure 21:10:00 [facility] Heart rate 2020-01-21 75 /min [facility] 21:10:00 [facility] Respiratory rate 2020-01-21 16 /min [facility] 21:10:00 [facility] Body weight 2020-01-21 75.07 kg [facility] 21:10:00 [facility] Oxygen saturation 2020-01-21 98 /min [facility] in Arterial blood 21:10:00 [facility] by Pulse oximetry Branch Systolic blood 2019-09-27 113 mm[Hg] University of pressure 21:06:00 [facility] Diastolic blood 2019-09-27 73 mm[Hg] University o f pressure 21:06:00 [facility] Heart rate 2019-09-27 79 /min [facility] 21:06:00 [facility] Body temperature 2019-09-27 36.17 [place] [facility] 21:06:00 [facility] Respiratory rate 2019-09-27 17 /min [facility] :06:00 [facility] Body height 2019-09-27 165.1 cm [facility] :06:00 [facility] Body weight 2019-09-27 72.576 kg [facility] 21:06:00 [facility] BMI 2019-09-27 26.63 kg/m2 [facility] 21:06:00 [facility] Oxygen saturation 2019-09-27 96 /min [facility] Arterial blood 21:06:00 [facility] by Pulse oximetry Branch BP Systolic 2018-10-11 118 mm[Hg] Location: LUE; [facility] 10:59:00 Position: Sitting BP Diastolic 2018-10-11 76 mm[Hg] Location: LUE; [facility] 10:59:00 Position: Sitting Height 2018-10-11 64 [...] Heart Rate 2018-09-13 83 /min Location: L [facility] 13:10:00 Brachial Artery; Heart Rate 2018-07-18 [...] Performed INSURANCE CORRESPONDENCE 2022-02-25 06:01:00 Doctor Unassigned, [facility] [place] [facility] ASSIGNMENT OF BENEFITS 2020-07-23 18:50:10 Doctor Unassigned, [facility] [place] [facility] POCT GRP A STREP 2020-01-21 21:29:00 Jessica Harris [facility] (MOLECULAR) Medical Branch COVID-19 (PCR MOLECULAR 2019-09-27 20:59:00 Shaneka Pollack Un [facility] TESTING) Medical Branch VACCINATION OF A MINOR 2019-09-27 14:33:24 [facility] [place] [facility] REFERRAL- 2019-04-26 06:01:00 Doctor Unassigned, [facility] REQUEST/RESPONSE [place] [facility] Encounters Start End Encounter Admission Attending Care Care Encounter Source Date/Time Date/Time Type Type Clinicians Facility Department ID 2022-02-25 2022-02-25 Orders Doctor SEAN [id number] Univers 00:00:00 00:00:00 Only Unassigned, DERRICK [id number] ity of [place] [facility] 4.2.7.2.686 Rc as [phone] [facility] 009 Branch 2020-08-03 2020-08-03 Telephone de [facility] [id number] Univers 00:00:00 00:00:00 Jacobo Nelson [id number] ity of [facility] 4.2.7.2.686 [facility] [id number] [facility] 225 Branch 2020-07-23 2020-07-23 Office de [facility] [id number] Univers 13:50:33 14:10:33 Visit Jacobo Nelson [id number] ity of [facility] 4.2.7.2.686 [facility] [id number] [facility] 225 Branch 2020-07-23 2020-07-23 Outpatient R DE [facility] [id number] Univers 14:00:00 14:00:00 sue NELSON [facility] 2020-07-23 2020-07-23 Orders Doctor ESTRADA [id number] Univers 00:00:00 00:00:00 Only Unassigned, DERRICK [id number] ity of [place] [facility] 4.2.7.2.686 Rc as [id number] [facility] 009 Branch 2020-01-23 2020-01-23 Telephone de [facility] [id number] Univers 00:00:00 00:00:00 Jacobo Nelson [id number] ity of [facility] 4.2.7.2.686 [facility] [id number] [facility] 225 Branch 2020-01-21 2020-01-21 Office de [facility] [id number] Univers 16:00:01 16:20:01 Visit Jacobo Nelson [id number] ity of [facility] Pediatric 4.2.7.2.686 [facility] [id number] [address] 2020-01-21 2020-01-21 Outpatient R DE [facility] [id number] Univers 16:00:00 16:00:00 sue NELSON [facility] 2019-10-10 2019-10-10 AppointSPARKLE Chan [facility] [id number] [place] 10:00:00 10:00:00 t; Divya PINEDA Ph minna Montalvo M.D. 2019-09-27 2019-09-27 Urgent Pob1, Acute Care Clinic [facility] 1. [id number] Univers 15:51:00 16:32:39 Care Jeannine Bowling [id number]. 10 ity of [place] 4.2.7.2.686 Rc as Professio [phone] [address] Office [address] 2019-09-27 2019-09-27 Outpatient [facility] [id number] Univers 09:40:00 09:40:00 JEANNINE rogers [facility] 2019-09-27 2019-09-27 Orders Doctor ESTRADA [id number] Univers 00:00:00 00:00:00 Only Unassigned, DERRICK [id number] ity of [place] [facility] 4.2.7.2.686 Rc as [phone] [address] 2019-09-27 2019-09-27 Telephone Dash [facility] [id number] Univers 00:00:00 00:00:00 Jeannine Centeno [id number] ity of [facility] 4.2.7.2.686 [facility] [phone] [address] 2019-09-26 2019-09-26 Telephone Etelvina [facility] [id number] Univers 00:00:00 00:00:00 , Deysi Centeno [id number] it y of Pediatric 4.2.7.2.686 [facility] [id number] [facility] 225 Branch 2019-04-26 2019-04-26 Orders Doctor SEAN [id number] Univers 00:00:00 00:00:00 Only Unassigned, DERRICK [id number] ity of [place] [facility] 4.2.7.2.686 Rc as [id number] [facility] 009 Branch 2018-10-11 2018-10-11 Nuris TREVINO [facility] Obstetrics [id number] [place] 11:45:00 11:45:00 t; Divya PINEDA and Ph getachew TREVINO, Gynecology Mirtha Nava M.D. [facility] 2018-09-25 2018-09-25 SP[facility] [id number] [place] 10:15:00 10:15:00 t; Divya PINEDA [facility] BELINDA, [place] minna PINEDA M.D. 2018-09-13 2018-09-13 Nuris TREVINO [facility] [id number] [place] 13:00:00 13:00:00 t; Divya PINEDA [place] minna Montalvo M.D. 2018-07-18 2018-07-18 Emergency [facility] [id number] Memoria 14:56:00 16:56:00 r Willard 00 [facility] 2018-07-18 2018-07-18 Emergency [facility] [id number] Memoria 14:56:00 16:56:00 r [place] 00 [facility] 2018-07-18 2018-07-18 Outpatient Bernard, MHPL MHPL [id number] 09:56:00 11:56:00 Jesse Mc 2018-07-18 2018-07-18 Emergency E MHBL MHBL [id number] MHBL 09:56:00 09:56:00 Results Test Description Test Time Test Comments Results Result Comments Source POCT GRP A STREP (MOLECULAR) 2020-01-21 21:29:00 Test Item Value Reference Range Interpretation Comme nts POCT GP A STREP (test code = 32447-8) negative Negative - Negat wilma Lab Interpretation (test code = 84334-0) [facility]2020-01-21 21:29:00 Test Item Value Reference Range Interpretation Comments POCT GP A STREP (test code = negative Negative - Negative 56043-2) Lab Interpretation (test code = Normal 45664-9) [facility]2019-09-29 17:27:00 Test Item Value Reference Range Interpretation Comments SARS-CoV-2 PCR (test Not Detected Not Detected code = 73175-9) GUILLAUME (test code = GUILLAUME) [employer] SARS-CoV-2 Assay is a nucleic acid amplification test intended for the qualitative detection of RNA from SARS-CoV-2 from nasopharyngeal (PEDIATRIC RADIOLOGIST) specimens. ?It is used under Emergency Use [...] indicated. Lab Interpretation Normal (test code = 36716-6) [facility][O] Urine Test (in office)2018-09-25 00:00:00 Test Item Value Reference Range Interpretation Comments Test, Urine; Normal (test neg N code = 2106-3) [facility] AND [id number] 15:29:00 Test Item Value Reference Range Interpretation Comments UA Turbidity (test code Slight Cloudy (07/18/18 = UA Turbidity) 10:29 AM) [facility] AND [id number] 15:29:00 Test Item Value Reference Range Interpretation Comments UA Color (test code = Yellow *NA*(07/18/18 UA Color) 10:29 AM) [facility] AND [id number] 15:29:00 Test Item Value Reference Range Interpretation Comments UA Nitrite (test code Negative (07/18/18 10:29 = UA Nitrite) AM) [facility] AND [id number] 15:29:00 Test Item Value Reference Range Interpretation Comments UA Leuk Est (test code Trace *ABN*(07/18/18 = UA Leuk Est) 10:29 AM) [facility] [id number] 15:29:00 Test Item Value Reference Range Interpretation Comments Micro? (test code = Performed (07/18/18 10:29 Micro?) AM) [facility] [id number] 15:29:00 Test Item Value Reference Range Interpretation Comments UA Blood (test code = Negative (07/18/18 10:29 UA Blood) AM) [facility] [id number] 15:29:00 Test Item Value Reference Range Interpretation Comments UA Urobilinogen (test code = UA 0.2 0.1-1.0 Urobilinogen) [facility] [id number] 15:29:00 Test Item Value Reference Range Interpretation Comments UA Ketones (test code = Trace *ABN*(07/18/18 UA Ketones) 10:29 AM) [facility] AND [id number] 15:29:00 Test Item Value Reference Range Interpretation Comments UA Bili (test code = Negative *NA*(07/18/18 UA Bili) 10:29 AM) [facility] AND [id number] 15:29:00 Test Item Value Reference Range Interpretation Comments UA Glucose (test code Negative (07/18/18 10:29 = UA Glucose) AM) [facility] [id number] 15:29:00 Test Item Value Reference Range Interpretation Comments U Preg (test code = U Negative (07/18/18 10:29 Preg) AM) [facility] [id number] 15:29:00 Test Item Value Reference Range Interpretation Comments N gonorrhea by Amp Det Negative *NA*(07/18/18 (APTIMA) (test code = N 10:29 AM) gonorrhea by Amp Det (APTIMA)) [facility] [id number] 15:29:00 Test Item Value Reference Range Interpretation Comments C trachomatis by Amp Det Negative *NA*(07/18/18 (APTIMA) (test code = C 10:29 AM) trachomatis by Amp Det (APTIMA)) [facility] [id number] 15:29:00 Test Item Value Reference Range Interpretation Comments Source APTIMA (test Urine *NA*(07/18/18 code = Source APTIMA) 10:29 AM) [facility] [id number] 15:29:00 Test Item Value Reference Range Interpretation Comments UA Bacteria (test code = UA Moderate /HPF Bacteria) [facility] [id number] 15:29:00 Test Item Value Reference Range Interpretation Comments UA RBC (test code = 0-2 /HPF See_Comment [Automa dennis message] The UA RBC) system which ge nerated this result tra nsmitted reference range : <=2. The reference range was not used to interpr et this result as rafa l/abnormal. [facility] [id number] 15:29:00 Test Item Value Reference Range Interpretation Comments UA Sq Epi (test code = UA Sq Moderate /LPF Epi) [facility] AND [id number] 15:29:00 Test Item Value Reference Range Interpretation Comments UA RBC (test code = 0-2 /HPF See_Comment [Automa dennis message] The UA RBC) system which ge nerated this result tra nsmitted reference range : <=2. The reference range was not used to interpr et this result as rafa l/abnormal. [facility] [id number] 15:29:00 Test Item Value Reference Range Interpretation Comments UA Sq Epi (test code = UA Sq Moderate /LPF Epi) [facility] AND [id number] 15:29:00 Test Item Value Reference Range Interpretation Comments UA WBC (test code = 3-5 /HPF See_Comment [Automa dennis message] The UA WBC) system which ge nerated this result tra nsmitted reference range : <=5. The reference range was not used to interpr et this result as rafa l/abnormal. [facility] [id number] 15:29:00 Test Item Value Reference Range Interpretation Comments UA Mucus (test code = UA Mucus) Few /LPF [facility] [id number] 15:29:00 Test Item Value Reference Range Interpretation Comments UA Protein (test code Negative (07/18/18 10:29 = UA Protein) AM) [facility] AND [id number] 15:29:00 Test Item Value Reference Range Interpretation Comments UA pH (test code = UA pH) 7.0 1 5.0-8.0 [facility] AND [id number] 15:29:00 Test Item Value Reference Range Interpretation Comments UA Spec Grav (test code = UA Spec 1.020 1 Grav) [facility] AND [id number] 15:29:00 Test Item Value Reference Range Interpretation Comments UA Turbidity (test code Slight Cloudy (07/18/18 = UA Turbidity) 10:29 AM) [facility] AND [id number] 15:29:00 Test Item Value Reference Range Interpretation Comments UA Color (test code = Yellow *NA*(07/18/18 UA Color) 10:29 AM) [facility] AND [id number] 15:29:00 Test Item Value Reference Range Interpretation Comments UA Nitrite (test code Negative (07/18/18 10:29 = UA Nitrite) AM) [facility] AND [id number] 15:29:00 Test Item Value Reference Range Interpretation Comments UA Leuk Est (test code Trace *ABN*(07/18/18 = UA Leuk Est) 10:29 AM) [facility] AND [id number] 15:29:00 Test Item Value Reference Range Interpretation Comments Micro? (test code = Performed (07/18/18 10:29 Micro?) AM) [facility] AND [id number] 15:29:00 Test Item Value Reference Range Interpretation Comments UA Blood (test code = Negative (07/18/18 10:29 UA Blood) AM) [facility] AND [id number] 15:29:00 Test Item Value Reference Range Interpretation Comments UA Urobilinogen (test code = UA 0.2 0.1-1.0 Urobilinogen) [facility] AND [id number] 15:29:00 Test Item Value Reference Range Interpretation Comments UA Ketones (test code = Trace *ABN*(07/18/18 UA Ketones) 10:29 AM) [facility] AND [id number] 15:29:00 Test Item Value Reference Range Interpretation Comments UA Bili (test code = Negative *NA*(07/18/18 UA Bili) 10:29 AM) [facility] [id number] 15:29:00 Test Item Value Reference Range Interpretation Comments UA Glucose (test code Negative (07/18/18 10:29 = UA Glucose) AM) [facility] [id number] 15:29:00 Test Item Value Reference Range Interpretation Comments U Preg (test code = U Negative (07/18/18 10:29 Preg) AM) [facility] [id number] 15:29:00 Test Item Value Reference Range Interpretation Comments N gonorrhea by Amp Det Negative *NA*(07/18/18 (APTIMA) (test code = N 10:29 AM) gonorrhea by Amp Det (APTIMA)) [facility] [id number] 15:29:00 Test Item Value Reference Range Interpretation Comments C trachomatis by Amp Det Negative *NA*(07/18/18 (APTIMA) (test code = C 10:29 AM) trachomatis by Amp Det (APTIMA)) [facility] [id number] 15:29:00 Test Item Value Reference Range Interpretation Comments Source APTIMA (test Urine *NA*(07/18/18 code = Source APTIMA) 10:29 AM) [facility] [id number] 15:29:00 Test Item Value Reference Range Interpretation Comments UA Bacteria (test code = UA Moderate /HPF Bacteria) [facility] [id number] 15:29:00 Test Item Value Reference Range Interpretation Comments UA WBC (test code = 3-5 /HPF See_Comment [Automa dennis message] The UA WBC) system which ge nerated this result tra nsmitted reference range : <=5. The reference range was not used to interpr et this result as rafa l/abnormal. [facility] [id number] 15:29:00 Test Item Value Reference Range Interpretation Comments UA Mucus (test code = UA Mucus) Few /LPF [facility] [id number] 15:29:00 Test Item Value Reference Range Interpretation Comments UA Protein (test code Negative (07/18/18 10:29 = UA Protein) AM) [facility] [id number] 15:29:00 Test Item Value Reference Range Interpretation Comments UA pH (test code = UA pH) 7.0 1 5.0-8.0 [facility] [id number] 15:29:00 Test Item Value Reference Range Interpretation Comments UA Spec Grav (test code = UA Spec 1.020 1 Grav) [facility]
[2022-11-24] MEDS ORDERED: HYDROCODONE/APAP 7.5/325 MG TAB ONE (22:16)
[2022-11-24] MEDS ORDERED: IBUPROFEN 400 MG TAB ONE (22:16)
[2022-11-24] MEDS ORDERED: LIDOCAINE 1% W/EPI 1:100,000 50 ML MDV ONE (22:57)
--- NOTE | 2022-11-24 23:20 | EDPHYS ---
Physician Documentation [facility] Name: Britney Brenner Age: 21 yrs Sex: Female : 2000 Arrival Date: 11/24/2022 Time: 21:25 Bed 11 Private MD: ED Physician Rober Vegas HPI: 11/24 22:00 This 21 yrs old Female presents to ER via Ambulatory with complaints of Skin Problem. cp 22:00 The patient presents with an abscess of the left cheek, the patient presents with a cp swollen area of the left cheek. Description: erythematous, swollen. 22:00 Onset: The symptoms/episode began/occurred gradually. cp 22:00 Associated signs and symptoms: Pertinent positives: discharge, Pertinent negatives: cp fever. Severity of symptoms: in the emergency department the symptoms are unchanged, despite home interventions. Historical: - Allergies: 21:48 Latex, Natural Rubber; kl - PMHx: 21:48 ADD/ADHD; Depression; kl - Social history:: Smoking status: Patient denies any tobacco usage or history of. ROS: 22:05 Skin: Positive for abscess, of the left cheek. cp 22:05 Constitutional: Negative for body aches, chills, fever, poor PO intake. cp 22:05 Cardiovascular: Negative for chest pain. 22:05 Respiratory: Negative for cough. 22:05 All other systems are negative. Exam: 22:10 Constitutional: The patient appears in no acute distress, alert, awake, non-toxic, well cp developed, well nourished, uncomfortable. 22:10 Head/face: Noted is erythema, that is mild, of the left cheek, swelling, that is mild, cp of the left cheek. 22:10 Eyes: Periorbital structures: appear normal, Conjunctiva: normal, no exudate, no injection, Sclera: no appreciated abnormality, Lids and lashes: appear normal, bilaterally. 22:10 ENT: External ear(s): are unremarkable, Nose: is normal, Mouth: Lips: moist, Oral mucosa: moist. 22:10 Chest/axilla: Inspection: normal. 22:10 Cardiovascular: Rate: normal, Rhythm: regular. 22:10 Respiratory: the patient does not display signs of respiratory distress, Respirations: normal, no use of accessory muscles. 22:10 Skin: abscess, that is small, of the left cheek, with fluctuance. Vital Signs: 21:44 BP 140 / 93; Pulse 109; Temp 99.2; Pulse Ox 99% on R/A; Weight 84.82 kg (R); Height 5 kl ft. 5 in. ; Pain 9/10; 23:41 Pulse 82; Resp 16; Pulse Ox 99% ; kl 21:44 Body Mass Index 31.12 (84.82 kg, 165.1 cm) kl 21:44 Pain Scale: Adult kl Procedures: 23:15 I \T\ D: Incision and drainage was performed for an abscess of the left cheek Prepped with Betadine, Anesthetized with 5 ml's 1% Lidocaine w/ Epi. Drained moderate amount purulent fluid. Packed with iodoform gauze, Dressing: sterile 4x4 gauze, the patient tolerated the procedure well, curved hemostats used to open wound. MDM: 21:52 Patient medically screened. 23:18 Data reviewed: vital signs, nurses notes. 23:18 I considered the following discharge prescriptions or medication management in the emergency department Medications were administered in the Emergency Department. See MAR. Counseling: I had a detailed discussion with the patient and/or guardian regarding: the historical points, exam findings, and any diagnostic results supporting the discharge/admit diagnosis, the need for outpatient follow up, a student assistance counselor, to return to the emergency department if symptoms worsen or persist or if there are any questions or concerns that arise at home. Response to treatment: the patient's symptoms have markedly improved after treatment, and as a result, I will discharge patient. 11/24 22:39 Order name: I\T\D Setup; Complete Time: 22:49 Administered Medications: 22:07 Drug: Hydrocodone-Acetaminophen PO (7.5 mg-325 mg) 1 tabs Route: PO; 9 22:49 Follow up: Response: No adverse reaction mb9 22:07 Drug: Ibuprofen PO 800 mg Route: PO; mb9 22:49 Follow up: Response: No adverse reaction mb9 23:03 Drug: Lidocaine-Epinephrine Infiltration -1%: (1:100,000) 5 ml Volume: 20 ml; Route: mb9 Infiltration; 23:25 Drug: LORazepam PO 1 mg Route: PO; kl 23:40 Follow up: Response: No adverse reaction kl 23:25 Drug: Doxycycline PO 200 mg Route: PO; kl 23:40 Follow up: Response: No adverse reaction kl 23:25 Drug: Trimethoprim-Sulfamethoxazole PO (160 mg-800 mg (DS) 2 tablet Route: PO; kl 23:40 Follow up: Response: No adverse reaction kl Disposition Summary: 11/24/22 23:19 Discharge Ordered Location: Home cp Problem: new cp Symptoms: have improved cp Condition: Stable cp Diagnosis - Cutaneous abscess of face cp - Cellulitis of face cp Followup: cp - With: Private Physician - When: 2 - 3 days - Reason: Worsening of condition Discharge Instructions: - Discharge Summary Sheet cp - Skin Abscess cp - Incision and Drainage cp Forms: - Medication Reconciliation Form cp - Thank You Letter cp - Antibiotic Education cp - Prescription Opioid Use cp - Patient Portal Instructions cp - Work release form mb9 Prescriptions: - Ibuprofen 800 mg Oral Tablet - take 1 tablet by ORAL route every 8 hours As needed take with food; 30 tablet; cp Refills: 0, Product Selection Permitted - Doxycycline Hyclate 100 mg Oral Tablet - take 1 tablet by ORAL route every 12 hours; 20 tablet; Refills: 0, Product cp Selection Permitted - Bactrim DS 800-160 mg Oral Tablet - take 1 tablet by ORAL route every 12 hours for 10 days; 20 tablet; Refills: 0, cp Product Selection Permitted Signatures: Rosalind Luna RN RN kl Page, Corey, PA PA cp Breneman, Mary Beth, RN RN mb9 Corrections: (The following items were deleted from the chart) 21:50 21:48 Allergies: No Known Allergies; kyle wright
--- NOTE | 2022-11-24 23:20 | ER ---
Nurse's Notes [facility] Name: Britney Brenner Age: 21 yrs Sex: Female : 2000 Arrival Date: 11/24/2022 Time: 21:25 Bed 11 Private MD: Diagnosis: Cutaneous abscess of face;Cellulitis of face Presentation: 11/24 21:44 Chief complaint: Patient states: open draining wound to left cheek similar to one last kl month draining open wound noted to left cheek thick yellow drainage. Coronavirus screen: Vaccine status: Patient reports receiving the 2nd dose of the covid vaccine. Ebola Screen: Patient negative for fever greater than or equal to 101.5 degrees Fahrenheit, and additional compatible Ebola Virus Disease symptoms. Initial Sepsis Screen: Does the patient meet any 2 criteria? No. Patient's initial sepsis screen is negative. Does the patient have a suspected source of infection? No. Patient's initial sepsis screen is negative. Risk Assessment: Do you want to hurt yourself or someone else? Patient reports no desire to harm self or others. 21:44 Method Of Arrival: Ambulatory 21:44 Acuity: XAVIER 4 kl Triage Assessment: 21:50 General: Appears uncomfortable, Behavior is cooperative. Pain: Complains of pain in kl left cheek Pain currently is 9 out of 10 on a pain scale. Historical: - Allergies: 21:48 Latex, Natural Rubber; kl - PMHx: 21:48 ADD/ADHD; Depression; kl - Social history:: Smoking status: Patient denies any tobacco usage or history of. Screenin:50 [facility] ED Fall Risk Assessment (Adult) History of falling in the last 3 months, mb9 including since admission No falls in past 3 months (0 pts) Confusion or Disorientation No (0 pts) Intoxicated or Sedated No (0 pts) Impaired Gait No (0 pts) Mobility Assist Device Used No (0 pt) Altered Elimination No (0 pt) Score/Fall Risk Level 0 - 2 = Low Risk Oriented to surroundings, Maintained a safe environment, Educated pt \T\ family on fall prevention, incl call for assistance when getting out of bed. Abuse screen: Denies threats or abuse. Nutritional screening: No deficits noted. Tuberculosis screening: No symptoms or risk factors identified. Assessment: 22:30 Reassessment: No changes from previously documented assessment. Patient and/or family mb9 updated on plan of care and expected duration. Pain level reassessed. Patient is alert, oriented x 3, equal unlabored respirations, skin warm/dry/pink. 23:40 Reassessment: Patient states feeling better. Patient states symptoms have improved. Vital Signs: 21:44 BP 140 / 93; Pulse 109; Temp 99.2; Pulse Ox 99% on R/A; Weight 84.82 kg (R); Height 5 kl ft. 5 in. ; Pain 9/10; 23:41 Pulse 82; Resp 16; Pulse Ox 99% ; kl 21:44 Body Mass Index 31.12 (84.82 kg, 165.1 cm) 21:44 Pain Scale: Adult ED Course: 21:28 Patient arrived in ED. im 21:35 Rober Lomeli PA is PHCP. cp 21:35 Rober Vegas MD is Attending Physician. cp 21:48 Triage completed. kl 22:18 Arm band placed on. 9 22:18 Bed in low position. Call light in reach. Side rails up X 1. Client placed on mb9 continuous cardiac and pulse oximetry monitoring. NIBP monitoring applied. 23:10 Patient did not have IV access during this emergency room visit. 9 23:40 Assist provider with I \T\ D: of an abscess on left Set up I\T\D tray. Performed by Rober CALHOUN Dressing with 4X4s, tape. Administered Medications: 22:07 Drug: Hydrocodone-Acetaminophen PO (7.5 mg-325 mg) 1 tabs Route: PO; 9 22:49 Follow up: Response: No adverse reaction mb9 22:07 Drug: Ibuprofen PO 800 mg Route: PO; mb9 22:49 Follow up: Response: No adverse reaction mb9 23:03 Drug: Lidocaine-Epinephrine Infiltration -1%: (1:100,000) 5 ml Volume: 20 ml; Route: mb9 Infiltration; 23:25 Drug: LORazepam PO 1 mg Route: PO; kl 23:40 Follow up: Response: No adverse reaction kl 23:25 Drug: Doxycycline PO 200 mg Route: PO; kl 23:40 Follow up: Response: No adverse reaction 23:25 Drug: Trimethoprim-Sulfamethoxazole PO (160 mg-800 mg (DS) 2 tablet Route: PO; kyle 23:40 Follow up: Response: No adverse reaction Medication: 22:50 VIS not applicable for this client. mb9 Outcome: 23:19 Discharge ordered by . trish 23:41 Discharged to home ambulatory, with family. 23:41 Condition: improved 23:41 Discharge instructions given to patient, Instructed on discharge instructions, follow up and referral plans. medication usage, Demonstrated understanding of instructions, follow-up care, medications, Prescriptions given X 2. 23:42 Patient left the ED. Signatures: Rosalind Luna RN RN Rober Easley PA PA cp Breneman, Mary Beth, RN RN mb9 Selina Rayo Corrections: (The following items were deleted from the chart) 21:50 21:48 Allergies: No Known Allergies; [facility]
[2022-11-24] MEDS ORDERED: SMZ./TMP. 800/160 MG TABLET ONE (23:32)
[2022-11-24] MEDS ORDERED: LORAZEPAM 1 MG TABLET ONE (23:32)
[2022-11-24] MEDS ORDERED: DOXYCYCLINE 100 MG CAP PO ONE (23:33)
[2022-11-24 23:46] VITALS: BP 140/93; TEMP 99.2; O2SAT 99
== END 2022-11-24 23:42 | disposition home or self-care (01) ==
LOC: ER 21:25
PROC: 0H91XZZ Drainage of Face Skin, External Approach (ICD-10-PCS; principal; 2022-11-24)
DX: L02.01 Cutaneous abscess of face (principal); L03.211 Cellulitis of face; Z91.040 Latex allergy status; Z91.048 Other nonmedicinal substance allergy status
CPT/HCPCS: 99284